=== PATIENT | male | born 1990 | race Hispanic/Latino ===

== ENCOUNTER 2017-12-24 06:51 | Emergency (ER) | payer OTHER ==
--- NOTE | 2017-12-24 07:18 | ED PDOC ---
Arrival/HPI - General Historian: Patient - History of Present Illness Time/Duration: 24 hours Symptom Onset: Sudden Symptom Course: Unchanged Quality: Aching Severity Level: 6 <Cali Connell - Last Filed: 12/24/17 08:41> <Haley Peña - Last Filed: 12/24/17 17:34> - General Chief Complaint: Upper Extremity Problem/Injury Time Seen by Provider: 12/24/17 07:18 - History of Present Illness Narrative History of Present Illness (Text): Patient is a 27 year old male with no significant past medical history presenting to the ED with left shoulder pain. Patient states that he was lifting heavy boxes at work yesterday and heard a pop in his left shoulder. He describes the pain as achy, 6/10 in severity, and non-radiating. Patient works at a [employer] and his work involves lifting and pulling heavy objects. Patient denies having any dizziness, falls, or unsteady gait yesterday when the incident happened. He also denies numbness or tingling to the left arm and hand. Patient further denies fevers, chills, headaches, dizziness, chest pain, shortness of breath, abdominal pain, or urinary symptoms. PMD: Dr. Tu Myers in [place]. (Cali Connell) Past Medical History - Provider Review Nursing Documentation Reviewed: Yes - Travel History Have you recently traveled outside [place] w/in the past 3 mons?: No - Past History Past History: No Previous - Cardiac Hx Cardiac Disorders: No - Psychiatric Hx Substance Use: No - Surgical History Other/Comment: right shoulder surgery - Anesthesia Hx Anesthesia: No <Cali Connell - Last Filed: 12/24/17 08:41> Family/Social History - Physician Review Nursing Documentation Reviewed: Yes Family/Social History: Diabetes, Hypertension Smoking Status: Current Some Days Smoker Hx Alcohol Use: Yes Frequency of alcohol use: Socially Hx Substance Use: No <Cali Connell - Last Filed: 12/24/17 08:41> Allergies/Home Meds <Cali Connell - Last Filed: 12/24/17 08:41> <Haley Peña - Last Filed: 12/24/17 17:34> Allergies/Adverse Reactions: Allergies No Known Allergies Allergy (Verified 12/24/17 07:00) Home Medications: Home Meds Medication Instructions Recorded Confirmed No Known Home Med 12/24/17 12/24/17 Review of Systems - Physician Review All systems were reviewed & negative as marked: Yes - Review of Systems Constitutional: Normal. absent: Fevers, Night Sweats Eyes: Normal ENT: Normal Respiratory: Normal. absent: SOB, Cough Cardiovascular: Normal. absent: Chest Pain Gastrointestinal: Normal. absent: Abdominal Pain, Constipation, Diarrhea, Nausea, Vomiting Genitourinary Male: Normal. absent: Dysuria, Frequency, Hematuria Musculoskeletal: Other (Complains of shoulder pain) Skin: Normal. absent: Rash, Pruritis, Skin Lesions, Laceration Neurological: Normal. absent: Headache, Dizziness Psychiatric: Normal. absent: Anxiety, Depression <Cali Connell - Last Filed: 12/24/17 08:41> Physical Exam Vital Signs Reviewed: Yes Temperature: Afebrile Blood Pressure: Normal Pulse: Regular Respiratory Rate: Normal Appearance: Positive for: Well-Appearing, Non-Toxic, Comfortable Pain Distress: Moderate Mental Status: Positive for: Alert and Oriented X 3 - Systems Exam Head: Present: Atraumatic, Normocephalic Pupils: Present: PERRL Extroacular Muscles: Present: EOMI Conjunctiva: Present: Normal Mouth: Present: Moist Mucous Membranes Neck: Present: Normal Range of Motion Respiratory/Chest: Present: Clear to Auscultation, Good Air Exchange. No: Respiratory Distress, Accessory Muscle Use Cardiovascular: Present: Regular Rate and Rhythm, Normal S1, S2. No: Murmurs Abdomen: No: Tenderness, Distention, Peritoneal Signs Upper Extremity: Present: NORMAL PULSES, Tenderness (tender to palpation in the left AC joint region), Neurovascularly Intact. No: Cyanosis, Edema, Normal ROM (Active and passive ROM limited in abduction, flexion, and extension in the left arm.) Lower Extremity: Present: Normal Inspection. No: Edema Neurological: Present: GCS=15, CN II-XII Intact, Speech Normal, Gait Normal ( Patient is alert and oriented x 3, no gait instability appreciated on exam) Skin: Present: Warm, Dry, Normal Color. No: Rashes Psychiatric: Present: Alert, Oriented x 3, Normal Insight, Normal Concentration <Cali Connell - Last Filed: 12/24/17 08:41> Vital Signs Temp Pulse Resp BP Pulse Ox 12/24/17 08:46 98 F 84 18 140/78 96 12/24/17 07:02 97.8 F 95 H 17 145/81 98 Medical Decision Making <Cali Connell - Last Filed: 12/24/17 08:41> <Haley Peña - Last Filed: 12/24/17 17:34> ED Course and Treatment: Impression: Patient is a 27 year old male presenting to the ED with left shoulder pain. Differential Diagnosis included but are not limited to: - Muscle sprain/strain - Shoulder fracture Plan: -- Left shoulder Xray -- Tylenol Progress Notes: 12/24/17 08:27 - Left shoulder xray: Normal xray of left shoulder - Patient reassessed and states the pain is better after taking tylenol. Patient instructed to follow up with an orthopedic doctor before returning to work. - Patient is stable for discharge. (Cali Connell) 12/24/17 08:50 Patient Seen with Resident: In agreement with resident note which contains more details about the patient. Patient seen and evaluated with resident. Came up with plan and treatment together. Patient is alert and oriented in ED. No slurred speech. No gait instability. No headache or chest pain or shortness of breath. Reports injury yesterday. On exam , he has palpable pain to shoulder with pain with raising arm greater than 90 degrees. No deformity noted. No clavicular pain. No elbow or wrist pain. NV intact. Patient xray reveals no acute fracture or dislocation. Suspect ligamentous/ muscular injury. Advised NO WORK or heavy lifting and need to follow-up with ortho. Tylenol of motrin for pain. (Haley Peña) - RAD Interpretation Radiology Orders: 12/24/17 07:35 SHOULDER LEFT [RAD] Stat - Medication Orders Current Medication Orders: Discontinued Medications Acetaminophen (Tylenol 325mg Tab) 650 mg PO STAT STA Stop: 12/24/17 07:34 Last Admin: 12/24/17 07:41 Dose: 650 mg MAR Pain/Vitals Document 12/24/17 07:41 SRE (Rec: 12/24/17 07:46 SRE [id number]) Pain Reassessment Is This A Pain ReAssessment? Yes Sleep Is patient sleeping during reassessment? No Presence of Pain Presence of Pain Yes Pain Scale Used Pain Scale Used Numeric Location Left, Right or Bilateral Left Pain Location Body Site Shoulder Description Intermittent Intensity 5 Scale Used Numeric <Cali Connell - Last Filed: 12/24/17 08:41> - PA / WAREHOUSE RECEIVER / Resident Statement / has reviewed & agrees with the documentation as recorded. / has examined the patient and agrees with the treatment plan. - Scribe Statement The provider has reviewed the documentation as recorded by the Scribe <Haley Peña - Last Filed: 12/24/17 17:34> - Scribe Statement Latrice Barker All medical record entries made by the Scribe were at my direction and personally dictated by me. I have reviewed the chart and agree that the record accurately reflects my personal performance of the history, physical exam, medical decision making, and the department course for this patient. I have also personally directed, reviewed, and agree with the discharge instructions and disposition. (Haley Peña) Disposition/Present on Arrival - Present on Arrival Any Indicators Present on Arrival: No History of DVT/PE: No History of Uncontrolled Diabetes: No Urinary Catheter: No History of Decub. Ulcer: No History Surgical Site Infection Following: None - Disposition Have Diagnosis and Disposition been Completed?: Yes Disposition Time: 08:24 Patient Plan: Discharge <Cali Connell - Last Filed: 12/24/17 08:41> <Haley Peña - Last Filed: 12/24/17 17:34> - Disposition Diagnosis: Left shoulder pain Disposition: HOME/ ROUTINE Condition: GOOD Additional Instructions: BIJAN SMITH, thank you for letting us take care of you today. Your provider was Haley Peña MD and you were treated for left shoulder pain. The emergency medical care you received today was directed at your acute symptoms. If you were prescribed any medication, please fill it and take as directed. It may take several days for your symptoms to resolve. Return to the Emergency Department if your symptoms worsen, do not improve, or if you have any other problems. Please contact your doctor or call one of the physicians/clinics you have been referred to that are listed on the Patient Visit Information form that is included in your discharge packet. Bring any paperwork you were given at discharge with you along with any medications you are taking to your follow up visit. Our treatment cannot replace ongoing medical care by a primary care provider outside of the emergency department. Thank you for allowing the [facility] team to be part of your care today. 1. Please follow up with your primary care doctor and see an orthopedic doctor. 2. Take over the counter tylenol or motrin for the pain. 3. Return to the emergency room for worsening or newly concerning symptoms. Forms: [employer] ([place])
--- NOTE | 2017-12-24 08:38 | RAD ---
Date of service: 12/24/2017 PROCEDURE: Radiographs of the Left Shoulder HISTORY: r/o fracture COMPARISON: No prior. FINDINGS: BONES: Normal. No fracture. JOINTS: Normal. Glenohumeral and acromioclavicular joints preserved. No osteoarthritis. SOFT TISSUES: Normal. OTHER FINDINGS: None. IMPRESSION: Normal radiographs of the left shoulder.
[2017-12-24 08:47] VITALS: BP 140/78; PULSE 84; RESP 18; TEMP 98; O2SAT 96
== END 2017-12-24 08:45 | disposition home or self-care (01) ==
LOC: ED 06:51
DX: M25.512 Pain in left shoulder (principal)